=== PATIENT | male | born 1980 | race Asian ===

== ENCOUNTER 2024-01-17 21:36 | Emergency (ER) | payer OTHER ==
[~2024-01-17] VITALS: Ht 182.9 cm; Wt 99.8 kg
[2024-01-17 22:09] VITALS: BP_SYST 149; PULSE 93; RESP 16; TEMP 98.6; O2SAT 98
[2024-01-17] MEDS: BACITRACIN 1 GM OINT TP ONE (23:45)
[2024-01-18 01:22] VITALS: BP_SYST 149; PULSE 93; RESP 16; TEMP 98.6; O2SAT 98
== END 2024-01-18 01:22 | disposition home or self-care (01) ==
LOC: SED 21:36
DX: S66.306A Unspecified injury of extensor muscle, fascia and tendon of right little finger at wrist and hand level, initial encounter (principal); S50.311A Abrasion of right elbow, initial encounter; S60.511A Abrasion of right hand, initial encounter; S80.211A Abrasion, right knee, initial encounter; E11.9 Type 2 diabetes mellitus without complications; I10 Essential (primary) hypertension; Z79.899 Other long term (current) drug therapy; V18.0XXA Pedal cycle driver injured in noncollision transport accident in nontraffic accident, initial encounter; Y93.89 Activity, other specified; Y92.89 Other specified places as the place of occurrence of the external cause; Y99.8 Other external cause status
CPT/HCPCS: 73564; 99284